=== PATIENT | female | born 1970 | race Caucasian/White ===

== ENCOUNTER 2017-08-27 08:02 | Day surgery (SDC) | payer BC, OTHER ==
[2017-08-19 16:37] VITALS: Ht 149.9 cm; Wt 66.7 kg
[~2017-08-27] VITALS: Ht 149.9 cm; Wt 66.7 kg
[2017-08-27] VITALS (13 sets, daily range): BP systolic 103–154; BP diastolic 60–83; PULSE 54–74; RESP 11–18
[2017-08-27] MEDS ORDERED: CEFAZOLIN 2 GM/50 ML (PMX) 50 ML IVPB ONE (10:00)
[2017-08-27] MEDS ORDERED: SOD CHLORIDE 0.9% 1,000 ML IV ONE (10:00)
[2017-08-27] MEDS ORDERED: ATEN-51 PO (10:12)
[2017-08-27] MEDS ORDERED: OMEG-135 PO (10:12)
[2017-08-27] MEDS ORDERED: LOVA10TA63 PO (10:12)
[2017-08-27] MEDS ORDERED: BUPIVACAINE 0.25% (MPF) 30 ML INJ ONE (12:32)
[2017-08-27] MEDS ORDERED: FENTAnyl 50 MCG/ML VIAL ONE (12:51)
[2017-08-27] MEDS ORDERED: MIDAZOLAM 1 MG/ML 2 ML INJ ONE (12:51)
[2017-08-27] MEDS ORDERED: LIDOCAINE 2% (SDV) 5 ML INJ ONE (13:36)
[2017-08-27] MEDS ORDERED: PROPOFOL 20 ML ONE (13:36)
[2017-08-27] MEDS ORDERED: CEFAZOLIN 1 GM INJ ONE (13:36)
[2017-08-27] MEDS ORDERED: ONDANSETRON 4 MG INJ ONE (13:37)
--- NOTE | 2017-08-27 13:38 | OPR ---
Date/Time of Note Date/Time of Note DATE: 08/27/17 TIME: 13:35 Operative Report Procedure Date: Aug 27, 2017 Preoperative Diagnosis left suspicious breast calcification Postoperative Diagnosis same Operation/Procedure Performed 1. left needle loc breast biopsy 6 cm incision and 6 cm mass 2. localized adjacent tissue transfer with the use of skin flaps 12 sq cm defect 3. therapeutic injection of subcutaneous local anesthesia Surgeon see signature line Acute Care Registered Nurse none Anesthesia Type: general Estimated Blood Loss: 0 - 10 ml's Transfusion none Specimen left needle loc breast biopsy Grafts/Implants none Complications none Pt Condition Post Procedure: stable Indications This is a 46-year-old female with suspicious left breast calcifications. Decision was made to perform a left needle breast biopsy due to its suspicious nature on radiographic imaging. Risks alternatives benefits and percent were discussed with the patient. Patient expressed understanding consents to the operation. Procedure Description Patient taken to the OR and prepped and draped in usual sterile fashion. Surgical timeout was performed. IV antibiotics given. Radiographic imaging is reviewed prior to making incision. Curvilinear incision is made with a 15 blade along the upper outer region of the left breast. Dissection cautery was carried down to the area of the needle localization. The needle localization allowed demarcation of the area to be resected. The large mass was excised using cautery. There is good hemostasis. Surgical markings of short superior single long lateral double anterior were used. Specimen was handed off. The surgical site was irrigated. Hemostasis established. Due to tissue defect localized adjacent tissue transfer with these of skin flaps was performed. Multilayer closure with interrupted 3-0 Vicryl and running 4-0 Monocryl. Therapeutic subcutaneous local anesthesia was injected throughout the incision site. Dressings were applied Ronald GARAY Aug 27, 2017 13:38
[2017-08-27] MEDS ORDERED: FENTAnyl 50 MCG/ML VIAL IV PRN (14:00)
[2017-08-27] MEDS ORDERED: HYDROmorphONE (0.2 MG/ML) 10ML SYG IV PRN ×2 (14:00)
[2017-08-27] MEDS ORDERED: HYDROCODONE/APAP (5/325) TAB PO ONE (14:00)
[2017-08-27] MEDS ORDERED: MEPERIDINE 25 MG INJ IV PRN (14:00)
[2017-08-27] MEDS ORDERED: DIPHENHYDRAMINE 50 MG INJ IV PRN (14:00)
[2017-08-27] MEDS ORDERED: METOCLOPRAMIDE 10 MG INJ IV PRN (14:00)
[2017-08-27] MEDS ORDERED: ONDANSETRON 4 MG INJ IV PRN (14:00)
== END 2017-08-27 15:15 | disposition home or self-care (01) ==
LOC: SDS 08:02
PROVIDERS: ATTEND Surgery
DX: N60.12 Diffuse cystic mastopathy of left breast (principal)
CPT/HCPCS: 14001; 19125; 84703; 88307; J0690; J2250; J2405; J2765; J3010; Z7512; Z7610